=== PATIENT | female | born 1980 | race Caucasian/White ===

== ENCOUNTER 2017-02-28 07:39 | Inpatient (IN) | payer OTHER ==
[~2017-02-28] VITALS: Ht 167.6 cm; Wt 60.0 kg
--- NOTE | ~2017-02-28 | DS ---
Unit #: [id number] #: [id number] Patient: GURWINDER MCCRARY [id number] [address] [address] [id number] I MR#: [id number] NAME: GURWINDER MCCRARY ROOM: 47 Age: 36 Sex: F Admission Date: 02/28/2017 : 1980 Discharge Date: 03/05/2017 Attending Physician: Michael Calhoun M.D. Primary Care Physician: [facility] DISCHARGE SUMMARY DISCHARGE DIAGNOSES 1. Patient left AMA. 2. Septic shock. 3. Severe sepsis. 4. Community-acquired pneumonia, possible Gram-negative rods. 5. Moderate protein malnutrition. 6. Klebsiella urinary tract infection. 7. Obstructive acute pyelonephritis. 8. Anemia. 9. Multifocal pneumonia. 10. Ureteral stone, status post stent. 11. Bibasilar atelectasis. 12. Mild protein malnutrition. CONSULTATION Dr. Calhoun and Dr. Maciel. PROCEDURE Patient had cystoscopy and left retrograde pyelogram and stent placement. LAB DATA Sodium 140, potassium 3.5, creatinine 0.5. Liver enzymes normal. Albumin 2.4. WBC 5.2, hemoglobin 9.0, platelets 117. Urine culture is growing Klebsiella pneumoniae. Blood cultures negative. Stool negative for Giardia and cryptosporidium negative. ALLERGIES None. DISCHARGE MEDICATIONS 1. Tylenol 650 q.6 p.r.n. fever. 2. Cymbalta 60 daily. 3. Bactrim DS, one tablet p.o. b.i.d. for ten days. HOSPITALIZATION COURSE This is a 36-year-old admitted on February 28, 2017, for flank pain. Septic shock with severe sepsis with obstructive acute pyelonephritis with Klebsiella urinary tract infection. Patient is seen by urology and infectious disease. Urine cultures are growing Klebsiella. Blood Unit #: [id number] #: [id number] Patient: GURWINDER MCCRARY cultures negative. Patient was started on broad spectrum antibiotics including IV meropenem and Levaquin. The patient did not stay until we gave him antibiotics. Patient left AMA. Multifocal pneumonia concerning for septic emboli. Patient seen by Dr. Maciel. He was started on broad spectrum antibiotics. He wanted to wait for final cultures but patient left AMA. Anemia, multifactorial. Polysubstance abuse. Patient was supposed to see Dr. Maciel for antibiotic to take home but patient left AMA. Dictated by... Faraz Wilhelm TD: 04/03/2017 07:24 JOB #: [id number] DISCHARGE SUMMARY Page 1 of 1 X Sole Hays MD X DISCHARGE SUMMARY
--- NOTE | ~2017-02-28 | CR72 ---
[facility] A Service of [facility] RADIOLOGY TEXT RESULTS PATIENT: GURWINDER MCCRARY LOCATION: [facility] 476 : 79 UNIT #: [id number] AGE: [address]: Michael Calhoun MD SEX: F ORDER DR: [id number] [facility] [address] [facility]. [place], [place] [address] [id number] I MR#: [id number] Acc #: [id number] NAME: GURWINDER MCCRARY : 1980 SEX: F STUDY DATE/TIME: 03/02/2017 18:30 UNIT: [facility] ROOM: [facility] STUDY DESCRIPTION: CR Chest Single View Portable Attending Physician: Michael Calhoun M.D. Ordering Physician: Dina Doe M.D. Primary Care Physician: [facility] MEDICAL IMAGING REPORT This report is preliminary unless electronic signature is present EXAM Chest portable, 03/02/2017 at 1830 hours CLINICAL HISTORY 36-year-old woman with shortness of air today. COMPARISON None. FINDINGS Portable upright chest demonstrates normal heart size. The aortic contours are normal. There is abnormal soft tissue prominence in the right paratracheal/azygos region measuring up to 3.1 cm transversely. While this could represent prominent vessels. It is concerning for adenopathy or mass. There is bilateral lower lobe airspace density and right greater than left pleural effusion. IMPRESSION 1. Abnormal portable chest film. There is right paratracheal/azygos region soft tissue density measuring up to 3.1 cm transverse. While this could represent prominent vessels. The presence of a mass or adenopathy cannot be excluded. 2. There is bibasilar airspace change with right greater than left pleural effusions. Findings suggest the presence of pulmonary edema. Suggest at least a followup two-view chest film to reassess. A chest CT may be warranted. Dictated by... [facility] A Service [facility] RADIOLOGY TEXT RESULTS PATIENT: GURWINDER MCCRARY LOCATION: [facility] 476 : 79 UNIT #: [id number] AGE: [address]: Michael Calhoun MD SEX: F ORDER DR: Maricarmen Rome M.D. THIS IS AN ELECTRONICALLY VERIFIED REPORT Maricarmen Rome M.D. at 03/03/2017 8:41 AM STEVE/nichelle TD: 03/03/2017 05:58 JOB #: [id number] MEDICAL IMAGING REPORT Page 1 of 1 COPY
--- NOTE | ~2017-02-28 | HP ---
Unit #: [id number] #: [id number] Patient: GURWINDER MCCRARY [id number] [id number] [facility]. [place], [place] [address] [id number] I MR#: [id number] NAME: GURWINDER MCCRARY ROOM: 476 Age: 36 Sex: F Admission Date: 02/28/2017 : 1980 Attending Physician: Michael Calhoun M.D. Primary Care Physician: [facility] HISTORY AND PHYSICAL CHIEF COMPLAINT Flank pain. HISTORY OF PRESENT ILLNESS The patient is a 36-year-old female, with no significant past medical history, presented to the [facility] with complaining of the left-sided flank pain. The patient was found to have 7 x 8 mm stone at the ureteropelvic junction with severe hydronephrosis. The patient was brought to the [facility] for the cystoscopy with stent insertion. The patient had a fever of 102 at home. The patient was started on empiric IV antibiotics with levofloxacin. However, the patient continues to spike with a fever of 101 in the recovery room after the procedure and a medicine consult has been placed for the sepsis protocol and continues to have fever. The patient is status post stent placement and continues to have pain and positive for nausea and vomiting. PAST MEDICAL HISTORY None. PAST SURGICAL HISTORY Breast augmentation. MEDICATIONS Cymbalta. ALLERGIES No known drug allergies. SOCIAL HISTORY Smokes less than pack per day and denies any alcohol and illicit drug abuse. FAMILY HISTORY Reviewed and none. REVIEW OF SYSTEMS Positive for fever. Positive for flank pain. Positive for nausea. No vomiting. Positive for UTI, some infection with the stent placement in the past. Other systems reviewed and are none. PHYSICAL EXAMINATION VITAL SIGNS: On examination, the patient is lying on bed. Unit #: [id number] #: [id number] Patient: GURWINDER MCCRARY VITAL SIGNS: Temperature is 100.7, pulse 124, respirations are 20, blood pressure 121/68, saturating 100% on room air. HEENT: Head is atraumatic, normocephalic. Pupils are equal, round and reactive to light and accommodation. Extraocular movements are intact. NECK: Supple. Decreased air entry at the bases. HEART: Regular rate and rhythm. ABDOMEN: Soft, positive bowel sounds. Positive for the flank pain at the left, severe tenderness. EXTREMITIES: No cyanosis, no clubbing. NEUROLOGIC: Alert, awake and oriented. No gross focal motor deficits. DIAGNOSTIC STUDIES LABORATORY RESULTS: The patient had a UA from yesterday that shows 1+ leukocyte esterase, positive nitrites, 2+ bacteria and 25 to 50 urine wbc's. Urine drug screen is positive for TCS. WBC 10.5, hemoglobin is 13.3, hematocrit 39.2, platelet 152. Beta hCG is negative. Sodium 137, potassium 4.0, chloride 101, bicarb 27, glucose 122, BUN 22, creatinine 0.9. AST 23, ALT 14. WBC from today is 14.6, hemoglobin 12.8, hematocrit 37.9, platelets 122. Lactic acid is 1.1 and UA shows 2+ leukocyte esterase, positive nitrites, 3+ blood, 200 to 300 urine rbc's, 100 to 200 urine wbc's, 4+ urine bacteria. IMAGING STUDIES: CT of the abdomen and pelvis without contrast shows there is a 7 x 8 mm stone at the left ureteropelvic junction, resulting in high grade obstruction of the severe pelvocaliectasis, stranding and fluid around the left kidney and around the renal pelvis. The right kidney and ureter are normal. Hypodensities remain within the appendix, which does not appear thickened or inflamed. ASSESSMENT 1. Sepsis. 2. Urinary tract infection with pyelonephritis. 3. Hydronephrosis. 4. Ureteropelvic stone, status post stent. PLAN To continue with sepsis protocol. Repeat lactic acid again with persistent fever and we will change the antibiotics, discontinue the levofloxacin and start with IV Merrem for broader coverage and we will de-escalate the antibiotics once the sensitivities are back and check the CBC and BMP at a.m. and repeat the lactic acid again now and we will initiate the sepsis protocol with persistent fever and further recommendations will follow. Dictated by Faraz Saleh/syd TD: 03/01/2017 01:53 JOB #: [id number] Unit #: [id number] #: [id number] Patient: GURWINDER MCCRARY HISTORY AND PHYSICAL Page 1 of 1 X ZOILA REEVES MD HISTORY AND PHYSICAL
--- NOTE | ~2017-02-28 | CR7 ---
[facility] Service of [facility] & [facility] RADIOLOGY TEXT RESULTS PATIENT: GURWINDER MCCRARY LOCATION: [place] [address]- : [birth year] UNIT #: [id number] AGE: [address]: Michael Calhoun MD SEX: F ORDER DR: [id number] [facility] [address] [facility]. [place], [place] [address] [id number] I MR#: [id number] Acc #: [id number] NAME: GURWINDER MCCRARY : 1980 SEX: F STUDY DATE/TIME: 03/03/2017 15:45 UNIT: [facility] ROOM: [facility] STUDY DESCRIPTION: CR Abdomen Single AP View Attending Physician: Michael Calhoun M.D. Ordering Physician: Michael Calhoun M.D. Primary Care Physician: [facility] MEDICAL IMAGING REPORT This report is preliminary unless electronic signature is present EXAM Supine radiograph of the abdomen, 03/03/2017 HISTORY Stent placement. COMPARISON Comparison 03/02/2017 FINDINGS There is excreted contrast material in the bilateral renal collecting systems and urinary bladder. There is a stable appearing left ureteral stent extending from the level of the left renal pelvis to the urinary bladder. No calculus suggested along the course of the ureteral stent. There is a stable appearing small subcentimeter left lower pole renal calculus. The bony structures are unremarkable. The bowel gas pattern is normal. There is no free air. Dictated by... Jesus Renteria M.D. THIS IS AN ELECTRONICALLY VERIFIED REPORT Jesus Renteria M.D. at 03/06/2017 1:22 PM Jada TD: 03/04/2017 08:02 JOB #: [id number] MEDICAL IMAGING REPORT Page 1 of 1 COPY
--- NOTE | ~2017-02-28 | CR63 ---
[facility] A Service of [facility] RADIOLOGY TEXT RESULTS PATIENT: GURWINDER MCCRARY LOCATION: [place] [address] : [birth year] UNIT #: [id number] AGE: [address]: Michael Calhoun MD SEX: F ORDER DR: [id number] [facility] [address] [facility]. [place], [place] [address] [id number] I MR#: [id number] Acc #: [id number] NAME: GURWINDER MCCRARY : 1980 SEX: F STUDY DATE/TIME: 03/05/2017 16:30 UNIT: [facility] ROOM: [facility] STUDY DESCRIPTION: CR Chest 2 View Attending Physician: Michael Calhoun M.D. Ordering Physician: Glynn Maciel M.D. Primary Care Physician: [facility]. MEDICAL IMAGING REPORT This report is preliminary unless electronic signature is present EXAM Two views chest, 03/05/2017. HISTORY Pneumonia. Four days duration, shortness of air. REPORT PA and lateral radiographs of the chest are presented. COMPARISON Comparison to CT examination 03/03/2017. FINDINGS No acute bony abnormality. Prior bilateral augmentation mammoplasty. Heart and mediastinum within normal limits of size and contour. The lungs well inflated. Extensive bilateral airspace disease in the bilateral lower lung zones with areas of tabitha consolidation. Small bilateral pleural effusions. I believe there has been some improvement in the patchier mid to upper lung zone airspace disease bilaterally. The basilar findings are probably stable to minimally improved. The appearance could reflect bilateral pneumonia. Improving bilateral pulmonary edema is a consideration as well. There is no suspicious nodule or pneumothorax. Dictated by... Jesus Renteria M.D. THIS IS AN ELECTRONICALLY VERIFIED REPORT Jesus Renteria M.D. at 03/06/2017 1:21 PM PRITI/micheal [facility] A Service of [facility] RADIOLOGY TEXT RESULTS PATIENT: GURWINDER MCCRARY LOCATION: [place] [address] : [birth year] UNIT #: [id number] AGE: [address]: Michael Calhoun MD SEX: F ORDER DR: TD: 03/05/2017 18:33 JOB #: [id number] MEDICAL IMAGING REPORT Page 1 of 1 COPY
--- NOTE | ~2017-02-28 | OR ---
Unit #: [id number] #: [id number] Patient: GURWINDER MCCRARY [id number] [address] [address] [id number] Lois MR#: [id number] NAME: GURWINDER MCCRARY ROOM: 476 Date of Procedure: 02/28/2017 Admission Date: 02/28/2017 Surgeon: Michael Calhoun M.D. : 1980 Attending Physician: Michael Calhoun M.D. Primary Care Physician: [facility] OPERATIVE REPORT PREOPERATIVE DIAGNOSES Left ureteropelvic junction stone, suspect . POSTOPERATIVE DIAGNOSES Left ureteropelvic junction stone, suspect . PROCEDURES PERFORMED Cystoscopy, left retrograde pyelogram, stent placement. DESCRIPTION OF PROCEDURE After informed consent, she was taken to the operating room, placed under general anesthetic, positioned in lithotomy. Her vagina and perineum were prepped and draped in usual sterile fashion. Cystoscopy was performed showing a normal bladder. There were no tumors, no stones. The entire bladder was inspected. Left ureteral orifice was visible. Retrograde pyelogram was performed. There was no obvious calcification upon initial inspection with retrograde pyelogram. There was a filling defect in the proximal ureter consistent with her known stone. A 5 x 26 stent was placed over a wire and the tether was removed. There was a good coil in the bladder and collecting system. There was efflux of urine coming through the portals. There was no tabitha pus. Specimen was obtained for culture and will be sent to the lab. She will be return to the floor. I will consult the hospitalist. Her heart rate in recovery was somewhat tachycardic in the high 110s. Blood pressure was 116/70, hopefully she will improve. Continue antibiotics and I will increase her IV fluids. Dictated by... Faraz Guzman/kaurl TD: 02/28/2017 18:54 JOB #: [id number] Unit #: [id number] #: [id number] Patient: GURWINDER MCCRARY OPERATIVE REPORT Page 1 of 1 X Michael Calhoun MD OPERATIVE NOTE
--- NOTE | ~2017-02-28 | CR6 ---
[facility] A Service of [facility] & [facility] RADIOLOGY TEXT RESULTS PATIENT: GURWINDER MCCRARY LOCATION: [facility] 476-01 : [birth year] UNIT #: [id number] AGE: [address]: Michael Calhoun MD SEX: F ORDER DR: [id number] [facility] [address] [facility]. [place], [place] [address] [id number] I MR#: [id number] Acc #: [id number] NAME: GURWINDER MCCRARY : 1980 SEX: F STUDY DATE/TIME: 03/02/2017 16:39 UNIT: [facility] ROOM: [facility] STUDY DESCRIPTION: CR Abdomen Portable Sng View Attending Physician: Michael Calhoun M.D. Ordering Physician: Michael Calhoun M.D. Primary Care Physician: [facility] IMAGING REPORT This report is preliminary unless electronic signature is present EXAM Frontal abdomen, 03/02/2017 INDICATION Assessment of stone location. CT 02/28/2017 demonstrated a stone at the left UPJ level. Status post stent placement. TECHNIQUE Frontal abdomen compared with 02/28/2017 FINDINGS There is a left-sided ureteral stent present. The proximal loop is at the level of the renal pelvis and the distal loop at the level of the bladder. There is a radiopaque stone measuring 6-7 mm at the expected level of the proximal renal pelvis on the left. This may represent the previously identified stone on CT secondary to proximal migration of the stone. No radiopaque stone associated with the course of the left-sided stent. Bowel gas pattern nonspecific but nonobstructive. Probable atelectasis in the lung bases. IMPRESSION New left-sided ureteral stent. There is a 6-7 mm stone at the level of the left renal pelvis which may represent interval proximal migration of the previously demonstrated stone on CT. Dictated by... Jose Seals M.D. THIS IS AN ELECTRONICALLY VERIFIED REPORT Jose Seals M.D. at 03/03/2017 11:43 AM MARIA ESTHER/nichelle [facility] A Service of [facility] & [facility] RADIOLOGY TEXT RESULTS PATIENT: GURWINDER MCCRARY LOCATION: [facility] 476-01 : [birth year] UNIT #: [id number] AGE: [address]: Michael Calhoun MD SEX: F ORDER DR: TD: 03/03/2017 02:58 JOB #: [id number] MEDICAL IMAGING REPORT Page 1 of 1 COPY
--- NOTE | ~2017-02-28 | CT55 ---
[facility] A Service of [facility] & [facility] RADIOLOGY TEXT RESULTS PATIENT: GURWINDER MCCRARY LOCATION: [facility] 476-01 : [birth year] UNIT #: [id number] AGE: [address]: Michael Calhoun MD SEX: F ORDER DR: [id number] [facility] [address] [place], [place] [address] [id number] I MR#: [id number] Acc #: [id number] NAME: GURWINDER MCCRARY : 1980 SEX: F STUDY DATE/TIME: 03/03/2017 11:40 UNIT: [facility] ROOM: [facility] STUDY DESCRIPTION: CT Chest W Con Attending Physician: Michael Calhoun M.D. Ordering Physician: Anu Gutierrez A.P.R.N. [facility] MEDICAL IMAGING REPORT This report is preliminary unless electronic signature is present EXAM CT chest with contrast, 03/03/2017 1140 hours HISTORY 36-year-old woman with sepsis, pyelonephritis urolithiasis, thrombocytopenia, right paratracheal soft tissue density seen on chest x-ray 03/02/2017. Evaluate for lymphadenopathy. COMPARISON Chest CT 07/19/2013 and chest x-ray 03/02/2017. TECHNIQUE Dynamic helical CT images were obtained from the thoracic inlet through the adrenal glands. Sagittal and coronal reconstructions were performed. Contrast was Isovue-370, 70 mL IV. Total exam DLP 539 mGy-cm. This CT exam was performed with one or more of the following radiation dose reduction techniques: Automatic exposure control, adjustment of mA and/or kV according to patient size, and iterative reconstruction. FINDINGS Images through the thoracic inlet demonstrate no thyroid lesion or adenopathy. Images through the chest demonstrate well opacified normal caliber aorta, without dissection. Cardiac chambers are normal. Pulmonary arteries appear normal. There are very small prevascular, subcarinal and AP window nodes. There is no bulky right paratracheal node. The SVC is mildly prominent and this may account for the finding on prior chest film, given the rotation of the patient on that study. There are moderate bilateral pleural effusions, slightly larger on the right than left. There is ground-glass density in the inferior aspect of STS. [facility] A Service of [facility] RADIOLOGY TEXT RESULTS PATIENT: GURWINDER MCCRARY LOCATION: [facility] 476-01 : [birth year] UNIT #: [id number] AGE: [address]: Michael Calhoun MD SEX: F ORDER DR: the right upper lobe, with airspace changes right middle lobe, right lower lobe and left lower lobe. Findings appear to represent pneumonia. A component of atelectasis may be present. Limited views through the upper abdomen are negative. IMPRESSION 1. The SVC is mildly prominent and well opacified with contrast. There is no right paratracheal mass or adenopathy. This prominent SVC likely accounts for the finding on recent chest film, given the degree of rotation on that film. 2. Bilateral airspace changes in the mid and lower lungs, with bilateral pleural effusions. Findings favor multifocal pneumonia with parapneumonic effusions. Edema could appear similarly. 3. No acute findings in the upper abdomen. Dictated by... Maricarmen Rome M.D. THIS IS AN ELECTRONICALLY VERIFIED REPORT Maricarmen Rome M.D. at 03/04/2017 9:25 AM Esther TD: 03/03/2017 22:11 JOB #: [id number] MEDICAL IMAGING REPORT Page 1 of 1 COPY
--- NOTE | ~2017-02-28 | US80 ---
[facility] A Service of [facility] & [facility] RADIOLOGY TEXT RESULTS PATIENT: GURWINDER MCCRARY LOCATION: [facility] 476-01 : [birth year] UNIT #: [id number] AGE: [address]: Michael Calhoun MD SEX: F ORDER DR: [id number] [facility] [address] [facility]. [place], [place] [address] [id number] I MR#: [id number] Acc #: [id number] NAME: GURWINDER MCCRARY : 1980 SEX: F STUDY DATE/TIME: 03/03/2017 7:44 UNIT: [facility] ROOM: [facility] STUDY DESCRIPTION: US Kidney Unilateral Complete Attending Physician: Michael Calhoun M.D. Ordering Physician: Francisco Cedeno M.D. Primary Care Physician: [facility], MEDICAL IMAGING REPORT This report is preliminary unless electronic signature is present EXAM Renal ultrasound. INDICATION Renal stone diagnosed within the left proximal ureter on February 28, 2017. Patient has subsequently underwent placement of a renal stent yesterday. Exam is requested to evaluate patient's hydronephrosis and for a possibility of abscess. TECHNIQUE Turner-scale and color Doppler sonographic images were obtained through the patient's left kidney and bladder. FINDINGS No definite hydronephrosis is identified. The patient's left ureteral stent is not seen on these images. Bladder is decompressed. The patient is noted to have some fluid within the left lower quadrant. She had some fluid adjacent to the left kidney on prior CT from February 28. IMPRESSION 1. I do not see any evidence of hydronephrosis. Patient reportedly had placement of a left double-J ureteral stent but this is not well seen on images. 2. The bladder cannot be evaluated as it is decompressed. 3. There is some fluid seen within the left lower quadrant. I wonder if this potentially could correspond to the perinephric fluid that was seen on prior CT from February 28. CT would certainly be much more sensitive for evaluation for the presence of an abscess. STAT * RESULT [facility] A Service of [facility] & [facility] RADIOLOGY TEXT RESULTS PATIENT: GURWINDER MCCRARY LOCATION: [facility] 476-01 : [birth year] UNIT #: [id number] AGE: [address]: Michael Calhoun MD SEX: F ORDER DR: Dictated by... Samina iMn M.D. THIS IS AN ELECTRONICALLY VERIFIED REPORT Samina Min M.D. at 03/03/2017 5:03 PM AFF/tmw TD: 03/03/2017 14:48 JOB #: [id number] MEDICAL IMAGING REPORT Page 1 of 1 COPY
--- NOTE | ~2017-02-28 | HP ---
Unit #: [id number] #: [id number] Patient: GURWINDER MCCRARY [id number] [address] [address] [id number] Lois MR#: [id number] NAME: GURWINDER MCCRARY ROOM: 47 Age: 36 Sex: F Admission Date: 02/28/2017 : 1980 Attending Physician: Michael Calhoun M.D. Primary Care Physician: [facility]. HISTORY AND PHYSICAL CHIEF COMPLAINT Left flank pain. HISTORY OF PRESENT ILLNESS A 36-year-old woman with left flank pain evaluated at an outside facility. CT scan showed left UPJ stone. Stone approximately 7 to 8 mm. She was transferred here. Her urinalysis looks suspicious for a UTI. It was positive for nitrites and leukocytes. I saw her in the prep/holding area. She was having left flank pain. She has had stones in the past. She states she had cystoscopy and stent placement in the past. PAST MEDICAL HISTORY Kidney stones, cystoscopy and stent placement. She has had breast augmentation. Anxiety and depression. 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 ALLERGIES No known drug allergies. SOCIAL HISTORY Positive for smoking. FAMILY HISTORY Negative for any urologic problems. REVIEW OF SYSTEMS Negative for 10 points except for left flank pain. PHYSICAL EXAMINATION VITAL SIGNS: At the time she was seen in transfer upon arrival pulse was 117, temperature 98.3, blood pressure 108/75, O2 saturation 99. Prior to going back in the holding area her temperature was 101. CARDIAC EXAM: Benign. PULMONARY EXAM: Benign. EYES: Equal and reactive to light. NECK: Trachea midline. ABDOMEN: Soft, without rebound, and left mild CVA tenderness. EXTREMITIES: No cyanosis, clubbing or edema. NEUROLOGIC: Cranial nerves II through XII intact. DIAGNOSTIC STUDIES Unit #: [id number] #: [id number] Patient: GURWINDER MCCRARY LABORATORY: White count 18.5. Urinalysis 2+ bacteria, 25 to 50 white blood cells, positive for nitrite, positive for leukocyte esterase. ASSESSMENT 1. Left ureteropelvic junction stone. 2. Suspect urinary tract infection. PLAN Discussed with her the fact she has a stone and suspect a UTI. Recommended cystoscopy and stent placement with eventual treatment of her stone after she is treated for UTI. She agreed. I explained to her she may still be at risk for sepsis despite stent placement. She is on antibiotics. Will keep her on antibiotics. She will be stented and then returned to the floor. All her questions were answered. Dictated by Faraz Guzman/jennifer TD: 02/28/2017 22:57 JOB #: [id number] HISTORY AND PHYSICAL Page 1 of 1 X Michael Calhoun MD X HISTORY AND PHYSICAL
--- NOTE | ~2017-02-28 | CO ---
Unit #: [id number] #: [id number] Patient: GURWINDER MCCRARY [id number] [facility] [address] [facility]. [place], [place] [address] [id number] I MR#: [id number] NAME: GURWINDER MCCRARY ROOM: 476 Age: 36 Sex: F Admission Date: 02/28/2017 : 1980 Attending Physician: Michael Calhoun M.D. Primary Care Physician: [facility] CONSULTATION REPORT HISTORY OF PRESENT ILLNESS Ms. Mccrary is a 36-year-old female who presented to [facility] with left-sided flank pain. CT scan of the abdomen revealed a 7 x 8 mm stone at the uteropelvic junction with severe hydronephrosis. She was brought to [facility] and underwent a cystoscopy with stent insertion. She had a fever of 102 at home. She had been started on empiric IV antibiotics in the form of Levaquin. However, cultures have grown Klebsiella sensitive to Rocephin. She is currently on Rocephin. On 03/03/2017 temperature was 100.2. Her O2 saturations were low and supplemental oxygen was added. She had arterial blood gases done on room air, which revealed a pH of 7.48, pCO2 36, pO2 55. We were asked to see the patient. A chest x-ray revealed possibly a soft tissue density in the right paratracheal azygous region measuring 3 mm. There was bibasilar airspace disease, right greater than left, with evidence of pleural effusion. Subsequently a chest CT scan was done, which revealed a SVC which was prominent, probably representing abnormality in the paratracheal area. There was bilateral airspace disease in the mid to lower lungs with bilateral pleural effusions, consistent with either multifocal pneumonia or congestive heart failure. She did have air bronchograms. I have viewed this and reviewed it with the radiologist. The contrast injection was adequate to demonstrate no evidence of pulmonary emboli proximally. She has continued to have high fevers to 103 at 8 o'clock in the morning. She has been started on vancomycin and Zosyn and had been on Rocephin for her Klebsiella urinary tract infection. PAST MEDICAL HISTORY She denies any significant medical problems. PAST SURGICAL HISTORY Breast augmentation. SOCIAL HISTORY Smokes less than a pack per day. Denies alcohol or illicit drugs. Has children. FAMILY HISTORY Negative for lung disease. ALLERGIES No known drug allergies. CURRENT MEDICATIONS Cymbalta. Unit #: [id number] #: [id number] Patient: GURWINDER MCCRARY REVIEW OF SYSTEMS No chest pain. No palpitations. No rhinorrhea, nasal congestion. Does admit to some shortness of breath. Minimal cough. No sputum. Has had some nausea, vomiting. No unilateral weakness or numbness. Skin no rash. PHYSICAL EXAMINATION GENERAL: White female in no distress, sitting up in bed, able to speak in complete sentences, not using any accessory muscles with respiration. VITALS: Blood pressure 117/70, pulse 72, respiratory rate 18, temperature 101.3. NECK: Supple. Trachea midline. No cervical or supraclavicular lymphadenopathy. LUNGS: Fairly clear. HEART: Regular rate and rhythm. Could not appreciate murmur, rub r gallop. ABDOMEN: Nontender. Bowel sounds present. No hepatosplenomegaly. EXTREMITIES: Without clubbing, cyanosis or edema. NEUROLOGIC: Awake, alert and oriented times three. Cranial nerves intact. Muscle strength symmetric. SKIN: Warm and dry. PSYCHIATRIC: Affect calm. DIAGNOSTIC STUDIES LABORATORY: Arterial blood gases as noted. Chemistries reviewed. BNP 387. Lactic acid is 0.7. Procalcitonin 2.06. Beta HCG is negative. White blood cell count 6,100, hematocrit 25.9, platelet count 96,000. ASSESSMENT 1. Bibasilar pneumonia with hypoxemic respiratory failure. Possible healthcare acquired pneumonia. 2. Sepsis syndrome. 3. Uteropelvic junction stone with urinary tract infection with Klebsiella. RECOMMENDATION Broad spectrum antibiotics to cover healthcare acquired pneumonia, MRSA and gram negative. Will also check lower extremity venous Doppler study to further confirm no venous thromboembolism. Will follow with you and make further recommendations pending this. Would also recommend DVT prophylaxis with SCDs. Dictated by... Glynn Maciel M.D. Andrew TD: 03/06/2017 08:31 JOB #: [id number] Unit #: [id number] #: [id number] Patient: GURWINDER MCCRARY CONSULTATION REPORT Page 1 of 1 X Glynn Maciel MD CONSULTATION REPORT
--- NOTE | ~2017-02-28 | CT4 ---
[facility] A Service of [facility] & [facility] RADIOLOGY TEXT RESULTS PATIENT: GURWINDER MCCRARY LOCATION: [facility] 476-01 : [birth year] UNIT #: [id number] AGE: [address]: Michael Calhoun MD SEX: F ORDER DR: [id number] [facility] [address] [facility]. [place], [place] [address] [id number] I MR#: [id number] Acc #: [id number] NAME: GURWINDER MCCRARY : 1980 SEX: F STUDY DATE/TIME: 03/04/2017 8:44 UNIT: [facility] ROOM: [facility] STUDY DESCRIPTION: CT Abd and Pelv Wo Cont Attending Physician: Michael Calhoun M.D. Ordering Physician: Michael Calhoun M.D. Primary Care Physician: [facility] IMAGING REPORT This report is preliminary unless electronic signature is present EXAM CT of the abdomen and pelvis without contrast. INDICATIONS Left flank pain since February 26. TECHNIQUE CT scan of the abdomen and pelvis was performed without contrast using the renal stone protocol. Coronal and sagittal reformatted images were obtained. This CT exam was performed with one or more of the following radiation dose reduction techniques: automatic exposure control, adjustment of mA and/or kV according to patient size, and iterative reconstruction. COMPARISON Comparison is made with 02/28/2017. Also compared with chest CT from yesterday. FINDINGS Evaluation of the lung bases shows stable bilateral lower lobe airspace consolidations and stable bilateral pleural effusions. The liver is unremarkable. There is pericholecystic fluid around the gallbladder. The gallbladder is not distended. The spleen is unremarkable. There has been interval placement of a left double-J ureteral stent. The patient's 6 mm stone, previously seen in the left UPJ region, is now located in a left lower pole phani. The left-sided hydronephrosis has resolved. The right kidney is unremarkable. The adrenal glands are unremarkable. The pancreas is unremarkable. There is mild subcutaneous edema. Pelvis: Small amount of free fluid in the pelvis. The colon is unremarkable. The appendix is normal. The bone windows are unremarkable. STS. [facility] A Service of [facility] & [facility] RADIOLOGY TEXT RESULTS PATIENT: GURWINDER MCCRARY LOCATION: [facility] 476-01 : [birth year] UNIT #: [id number] AGE: [address]: Michael Calhoun MD SEX: F ORDER DR: IMPRESSION 1. There has been interval placement of a left double-J ureteral stent. 2. The 6 mm stone previously located in the left UPJ is now located in a lower pole phani on the left. 3. Resolution of left-sided hydronephrosis. 4. New pericholecystic fluid. Gallbladder nondistended. The pericholecystic fluid is nonspecific. If the patient is experiencing right upper quadrant discomfort, correlation with ultrasound may be helpful. 5. Stable bilateral pleural effusions and bilateral lower lobe consolidations when compared with the chest CT from yesterday. Dictated by... Elbert Swain M.D. THIS IS AN ELECTRONICALLY VERIFIED REPORT Elbert Swain M.D. at 03/04/2017 4:37 PM TRUDY/aubrey TD: 03/04/2017 13:04 JOB #: [id number] MEDICAL IMAGING REPORT Page 1 of 1 COPY
--- NOTE | ~2017-02-28 | CT4 ---
[facility] A Service of [facility] & [facility] RADIOLOGY TEXT RESULTS PATIENT: GURWINDER MCCRARY LOCATION: [facility] 476-01 : [birth year] UNIT #: [id number] AGE: [address]: Michael Calhoun MD SEX: F ORDER DR: [id number] [address] [address] [id number] E MR#: [id number] Acc #: [id number] NAME: GURWINDER MCCRARY : 1980 SEX: F STUDY DATE/TIME: 02/28/2017 09:16 UNIT: SED ROOM: STUDY DESCRIPTION: CT Abd and Pelv Wo Cont Attending Physician: Alex Cespedes M.D. Ordering Physician: Alex Cespedes M.D. [facility] REPORT This report is preliminary unless electronic signature is present. EXAM CT abdomen and pelvis without contrast 02/28/2017 0916 hours CLINICAL HISTORY 36-year-old woman complaining of left lower back pain, left flank pain, left lower quadrant pain with vomiting and nausea since last night. COMPARISON CT abdomen and pelvis 12/05/2015. TECHNIQUE Helical noncontrasted images were obtained from the lung bases through the pubic symphysis. Sagittal and coronal reconstructions were performed. Total exam DLP 690 mGy-cm. This CT exam was performed with one or more of the following radiation dose reduction techniques: Automatic exposure control, adjustment of mA and/or kV according to patient size, and iterative reconstruction. FINDINGS Images through the lung bases demonstrate very minimal linear subpleural density at both bases likely atelectasis or scar. There is no airspace change or nodule. No effusion. The distal esophagus is normal. Bilateral breast implants are present. Images through the abdomen demonstrate a normal appearance to the liver, spleen, pancreas, gallbladder and bile ducts. The adrenal glands are normal. The right kidney demonstrates no mass, stone or dilatation. The left kidney demonstrates moderate to severe pelvocaliectasis to the level of the ureteropelvic junction where there is a high-grade obstruction related to a large stone measuring 7 x 8 mm. There is stranding in the perinephric fat and around the renal pelvis. Consistent with high-grade STS. [facility] A Service of [facility] & [facility] RADIOLOGY TEXT RESULTS PATIENT: GURWINDER MCCRARY LOCATION: [facility] 476-01 : [birth year] UNIT #: [id number] AGE: [address]: Michael Calhoun MD SEX: F ORDER DR: obstruction. These findings are new. There is a crescent of fluid around the lower pole of the left kidney measuring up to 1.5 cm in thickness. This is most likely fluid related to the obstruction lying in a dependent portion. The stomach contains a small amount of dense material, question medication ingestion. The small bowel is normal. There are hyperdensities remaining within the appendix without evidence of inflammation. There is a large amount of stool throughout the colon. Some of which is dense distally perhaps related to medication ingestion. The uterus and ovaries are normal. IMPRESSION 1. There is a 7 x 8 mm stone at the left ureteral pelvic junction resulting in high-grade obstruction with severe pelvocaliectasis, stranding and fluid around the left kidney and around the renal pelvis. 2. The right kidney and ureter are normal. 3. Hyperdensities remain within the appendix which does not appear thickened or inflamed. 4. Increased amount of stool is noted throughout the colon with some dense material within the stool contents of the rectum likely related to medication ingestion. STAT * RESULT Dictated by... Maricarmen Rome M.D. THIS IS AN ELECTRONICALLY VERIFIED REPORT Maricarmen Rome M.D. at 02/28/2017 2:25 PM STEVE/yola TD: 02/28/2017 10:29 JOB #: [id number] MEDICAL IMAGING REPORT Page 1 of 1
--- NOTE | ~2017-02-28 | US84 ---
[id number] [facility] [address] [facility] [address] [place], [place] [address] [id number] I MR#: [id number] Acc #: [id number] NAME: GURWINDER MCCRARY : 1980 SEX: F STUDY DATE/TIME: 03/04/2017 14:08 UNIT: [facility] ROOM: 476 STUDY DESCRIPTION: US LE Veins Complete Travon Stdy Attending Physician: Michael Calhoun M.D. Ordering Physician: [facility] MEDICAL IMAGING REPORT This report is preliminary unless electronic signature is present EXAM Bilateral lower extremity venous duplex 03/04/2017 HISTORY Bilateral lower extremity pain and warmth for 5 years. Evaluate for deep vein thrombosis. TECHNIQUE Venous ultrasound examination of both lower extremities was performed using grayscale, spectral Doppler and color flow Doppler imaging. FINDINGS The examination is negative. There is no evidence of deep venous thrombus from the groin to the lower calf bilaterally. Visualized greater saphenous veins are also patent. IMPRESSION Negative examination. No evidence of lower extremity deep venous thrombosis. Dictated by... Kilo Mario M.D. THIS IS AN ELECTRONICALLY VERIFIED REPORT Kilo Mario M.D. at 03/05/2017 7:35 AM KRT/fernanda TD: 03/04/2017 16:18 JOB #: [id number] MEDICAL IMAGING REPORT Page 1 of 1 COPY
[~2017-02-28 07:39] MED LIST: ACETAMINOPHEN PO; CIPRO XR 500 M500 MG PO; CYMBALTA PO; IBUPROFEN800 MG PO; LEVAQUIN PO; MULTI VITAMIN1 EACH PO; NORCO1 TAB 10/3 PO; PRENATAL MULTIV1 TA1 PO; ZOFRANODT PO; [UNRECOGNIZED DRUG - OTHER] PO
[2017-02-28 08:04] LABS: URINE APPEARANCE SL CLOUDY; URINE BILIRUBIN NEG (NEG); URINE BLOOD 1+ (NEG); URINE COLOR YELLOW; URINE GLUCOSE NEG (NORM); URINE KETONE NEG (NEG); URINE LEUKOCYTE ESTERASE 1+ (NEG); URINE NITRATE POS (NEG); URINE PH 7.5 (5-8); URINE PROTEIN NEG (NEG); URINE SOURCE CLEAN CATCH; URINE SPECIFIC GRAVITY 1.015 (1.003-1.035); URINE UROBILINOGEN 0.2 MG/DL (NORM)
[2017-02-28 08:05] LABS: MICRO INDICATED? YES
[2017-02-28 08:14] LABS: CULTURE INDICATED? YES; URINE BACTERIA 2+ (NEG); URINE RBC 0-2 /[HPF] (0-2); URINE SQUAMOUS EPITHELIAL CELL OCCAS /[HPF]; URINE WBC 25-50 /[HPF] (0-5)
[2017-02-28 08:16] LABS: AMPHETAMINE NEG (NEG); BARBITURATES NEG (NEG); BENZODIAZEPINES NEG (NEG); COCAINE NEG (NEG); MARIJUANA NEG (NEG); OPIATES NEG (NEG); TRICYCLIC ANTIDEPRESSANTS POS (NEG); U METHADONE NEG (NEG)
[2017-02-28 08:29] LABS: BASOPHIL# 0.1 X10e3 (0-0.3); BASOPHIL% 0.4 % (0-2.5); EOSINOPHIL% 0.1 % (0.0-7.0); HEMATOCRIT 39.2 % (35.0-45.0); HEMOGLOBIN 13.3 gm/dL (12.0-16.0); LYMPHOCYTE# 0.2 X10e3 (1.0-3.5); MEAN CELL VOLUME 94.8 FL (83-96); MEAN CORPUSCULAR HEMOGLOBIN 32.2 PG (28-34); MEAN PLATELET VOLUME 9.2 FL (6.5-11.5); MONOCYTE# 0.4 X10e3 (0-1.0); MONOCYTE% 2.1 % (3.0-12.0); NEUTROPHIL# 17.8 X10e3 (1.5-7.1); NEUTROPHIL% 96.4 % (40-75); PLATELET COUNT 152 X10e3 (140-420); RED BLOOD COUNT 4.13 X10e (3.90-5.30); RED CELL DISTRIBUTION WIDTH 12.4 % (11.0-15.5); WHITE BLOOD COUNT 18.5 X10e3 (4.0-10.5)
[2017-02-28 08:32] LABS: DIFF IND NO
[2017-02-28 08:54] LABS: ALBUMIN SERUM 4.4 g/dL (3.5-5.0); BILIRUBIN,TOTAL 0.6 mg/dL (0.2-2.0); BUN/CREATININE RATIO 24.44; CALCIUM SERUM 9.1 mg/dL (8.4-10.2); CREATININE SERUM 0.9 mg/dL (0.6-1.4); GLOM FILT RATE Estimated 81.7 mL/min (>60); PROTEIN TOTAL SERUM 7.5 g/dL (6.0-8.3)
[2017-02-28 15:16] LABS: HEMATOCRIT 37.9 % (35.0-45.0); HEMOGLOBIN 12.8 gm/dL (12.0-16.0); MEAN CELL VOLUME 94.9 FL (83-96); MEAN CORPUSCULAR HEMOGLOBIN 32.2 PG (28-34); MEAN CORPUSCULAR HGB CONC 33.9 g/dL (30-36); MEAN PLATELET VOLUME 8.6 FL (6.5-11.5); RED BLOOD COUNT 3.99 X10e (3.90-5.30); RED CELL DISTRIBUTION WIDTH 12.4 % (11.0-15.5); WHITE BLOOD COUNT 14.6 X10e3 (4.0-10.5)
[2017-02-28 18:46] LABS: URINE APPEARANCE CLOUDY; URINE BILIRUBIN NEG (NEG); URINE BLOOD 3+ (NEG); URINE COLOR YELLOW; URINE GLUCOSE NEG (NEG); URINE KETONE NEG (NEG); URINE LEUKOCYTE ESTERASE 2+ (NEG); URINE NITRATE POS (NEG); URINE PROTEIN TRACE (NEG); URINE SPECIFIC GRAVITY 1.039 (1.003-1.035); URINE UROBILINOGEN 0.2 MG/DL (NEG)
[2017-02-28 18:49] LABS: URBCS1 AUWI 200-300 /[HPF] (0-2); URINE BACTERIA AUWI 4+ (NEGATIVE); URINE SQUAMOUS EPITHELIAL CELL NONE SEEN /[HPF]; UWBCS1 AUWI 100-200 (0-5)
[2017-02-28 23:07] LABS: BASOPHIL# 0.1 X10e3 (0-0.3); BASOPHIL% 0.5 % (0-2.5); HEMATOCRIT 32.8 % (35.0-45.0); HEMOGLOBIN 11.3 gm/dL (12.0-16.0); LYMPHOCYTE# 0.2 X10e3 (1.0-3.5); LYMPHOCYTE% 1.3 % (17.0-45.0); MEAN CELL VOLUME 94.9 FL (83-96); MEAN CORPUSCULAR HEMOGLOBIN 32.8 PG (28-34); MEAN CORPUSCULAR HGB CONC 34.5 g/dL (30-36); MEAN PLATELET VOLUME 9.6 FL (6.5-11.5); MONOCYTE# 0.5 X10e3 (0-1.0); MONOCYTE% 2.9 % (3.0-12.0); NEUTROPHIL# 16.9 X10e3 (1.5-7.1); NEUTROPHIL% 95.3 % (40-75); PLATELET COUNT 101 X10e3 (140-420); RED BLOOD COUNT 3.46 X10e (3.90-5.30); RED CELL DISTRIBUTION WIDTH 12.3 % (11.0-15.5); WHITE BLOOD COUNT 17.8 X10e3 (4.0-10.5)
[2017-02-28 23:08] LABS: DIFF IND YES
[2017-02-28 23:26] LABS: PLATELET ESTIMATE DECREASED (NORMAL)
[2017-02-28 23:27] LABS: ANISOCYTOSIS SL; STOMATOCYTE PRESENT
[2017-03-01 01:24] LABS: BASOPHIL# 0.2 X10e3 (0-0.3); BASOPHIL% 0.9 % (0-2.5); HEMATOCRIT 33.1 % (35.0-45.0); HEMOGLOBIN 11.1 gm/dL (12.0-16.0); LYMPHOCYTE# 0.3 X10e3 (1.0-3.5); LYMPHOCYTE% 1.9 % (17.0-45.0); MEAN CORPUSCULAR HEMOGLOBIN 31.8 PG (28-34); MEAN CORPUSCULAR HGB CONC 33.4 g/dL (30-36); MEAN PLATELET VOLUME 9.3 FL (6.5-11.5); MONOCYTE# 0.6 X10e3 (0-1.0); MONOCYTE% 3.3 % (3.0-12.0); NEUTROPHIL% 93.9 % (40-75); PLATELET COUNT 109 X10e3 (140-420); RED BLOOD COUNT 3.48 X10e (3.90-5.30); RED CELL DISTRIBUTION WIDTH 12.5 % (11.0-15.5); WHITE BLOOD COUNT 18.1 X10e3 (4.0-10.5)
[2017-03-01 01:31] LABS: DIFF IND NO
[2017-03-01 01:53] LABS: BUN/CREATININE RATIO 27.14; CALCIUM SERUM 8.5 mg/dL (8.4-10.2); CREATININE SERUM 0.7 mg/dL (0.6-1.4); GLOM FILT RATE Estimated 110.7 mL/min (>60); POTASSIUM 4.2 mmol/L (3.5-5.1)
[2017-03-02 03:49] LABS: BASOPHIL% 0.1 % (0-2.5); EOSINOPHIL% 0.1 % (0.0-7.0); HEMATOCRIT 29.9 % (35.0-45.0); HEMOGLOBIN 10.2 gm/dL (12.0-16.0); LYMPHOCYTE# 0.6 X10e3 (1.0-3.5); MEAN CELL VOLUME 95.5 FL (83-96); MEAN CORPUSCULAR HEMOGLOBIN 32.6 PG (28-34); MEAN CORPUSCULAR HGB CONC 34.1 g/dL (30-36); MEAN PLATELET VOLUME 10.1 FL (6.5-11.5); MONOCYTE# 0.3 X10e3 (0-1.0); MONOCYTE% 3.7 % (3.0-12.0); NEUTROPHIL# 8.3 X10e3 (1.5-7.1); NEUTROPHIL% 90.1 % (40-75); RED BLOOD COUNT 3.13 X10e (3.90-5.30); RED CELL DISTRIBUTION WIDTH 12.8 % (11.0-15.5); WHITE BLOOD COUNT 9.2 X10e3 (4.0-10.5)
[2017-03-02 04:06] LABS: DIFF IND YES; PLATELET COUNT 77 X10e3 (140-420)
[2017-03-02 04:10] LABS: ANISOCYTOSIS SL; PLATELET ESTIMATE DECREASED (NORMAL)
[2017-03-03 03:25] LABS: BASOPHIL% 0.1 % (0-2.5); EOSINOPHIL% 0.1 % (0.0-7.0); HEMATOCRIT 26.5 % (35.0-45.0); HEMOGLOBIN 9.3 gm/dL (12.0-16.0); LYMPHOCYTE# 0.5 X10e3 (1.0-3.5); LYMPHOCYTE% 6.9 % (17.0-45.0); MEAN CELL VOLUME 94.6 FL (83-96); MEAN CORPUSCULAR HEMOGLOBIN 33.1 PG (28-34); MEAN PLATELET VOLUME 9.7 FL (6.5-11.5); MONOCYTE# 0.5 X10e3 (0-1.0); MONOCYTE% 5.9 % (3.0-12.0); PLATELET COUNT 81 X10e3 (140-420); RED CELL DISTRIBUTION WIDTH 12.8 % (11.0-15.5)
[2017-03-03 03:26] LABS: DIFF IND NO
[2017-03-03 03:41] LABS: CALCIUM SERUM 7.9 mg/dL (8.4-10.2); CREATININE SERUM 0.4 mg/dL (0.6-1.4); GLOM FILT RATE Estimated 133.1 mL/min (>60); POTASSIUM 3.7 mmol/L (3.5-5.1)
[2017-03-04 03:45] LABS: BASOPHIL% 0.2 % (0-2.5); EOSINOPHIL# 0.1 X10e3 (0-0.7); EOSINOPHIL% 0.9 % (0.0-7.0); HEMATOCRIT 25.9 % (35.0-45.0); LYMPHOCYTE# 0.7 X10e3 (1.0-3.5); LYMPHOCYTE% 11.8 % (17.0-45.0); MEAN CELL VOLUME 93.9 FL (83-96); MEAN CORPUSCULAR HEMOGLOBIN 32.7 PG (28-34); MEAN CORPUSCULAR HGB CONC 34.8 g/dL (30-36); MEAN PLATELET VOLUME 9.9 FL (6.5-11.5); MONOCYTE# 0.5 X10e3 (0-1.0); MONOCYTE% 8.2 % (3.0-12.0); NEUTROPHIL# 4.8 X10e3 (1.5-7.1); NEUTROPHIL% 78.9 % (40-75); PLATELET COUNT 96 X10e3 (140-420); RED BLOOD COUNT 2.76 X10e (3.90-5.30); RED CELL DISTRIBUTION WIDTH 12.6 % (11.0-15.5); WHITE BLOOD COUNT 6.1 X10e3 (4.0-10.5)
[2017-03-04 03:46] LABS: DIFF IND NO
[2017-03-04 04:03] LABS: ALBUMIN SERUM 2.5 g/dL (3.5-5.0); BILIRUBIN,TOTAL 0.8 mg/dL (0.2-2.0); CALCIUM SERUM 7.8 mg/dL (8.4-10.2); CREATININE SERUM 0.3 mg/dL (0.6-1.4); GLOM FILT RATE Estimated 146.3 mL/min (>60); MAGNESIUM 1.8 mg/dL (1.6-3.0); POTASSIUM 3.1 mmol/L (3.5-5.1); PROTEIN TOTAL SERUM 5.4 g/dL (6.0-8.3)
[2017-03-04 11:04] LABS: ARTERIAL BLD GAS O2 SATURATION 88.6 % (90.0-100.0); ARTERIAL BLOOD GAS CARBOXY HB 1.2 %sat (0.0-9.0); ARTERIAL BLOOD GAS PCO2 36.9 mmHg (35.0-45.0); ARTERIAL BLOOD GAS pH 7.488 (7.350-7.450)
[2017-03-04 11:05] LABS: ARTERIAL BLOOD GAS ALLEN TEST NORMAL; ARTERIAL BLOOD GAS ART SITE RIGHT RADIAL; ARTERIAL BLOOD GAS PO2 55.7 mmHg (80.0-100); ARTERIAL DRAW? YES
[2017-03-04 13:46] LABS: CK TOTAL 39 IU/L (26-140)
[2017-03-04 19:05] LABS: CK TOTAL 34 IU/L (26-140)
[2017-03-05 03:55] LABS: HEMATOCRIT 26.4 % (35.0-45.0); MEAN CELL VOLUME 94.9 FL (83-96); MEAN CORPUSCULAR HEMOGLOBIN 32.4 PG (28-34); MEAN CORPUSCULAR HGB CONC 34.2 g/dL (30-36); MEAN PLATELET VOLUME 9.9 FL (6.5-11.5); RED BLOOD COUNT 2.79 X10e (3.90-5.30); RED CELL DISTRIBUTION WIDTH 12.5 % (11.0-15.5); WHITE BLOOD COUNT 5.2 X10e3 (4.0-10.5)
[2017-03-05 04:17] LABS: ALBUMIN SERUM 2.4 g/dL (3.5-5.0); BILIRUBIN,TOTAL 0.5 mg/dL (0.2-2.0); CALCIUM SERUM 8.1 mg/dL (8.4-10.2); CREATININE SERUM 0.5 mg/dL (0.6-1.4); GLOM FILT RATE Estimated 123.7 mL/min (>60); POTASSIUM 3.5 mmol/L (3.5-5.1); PROTEIN TOTAL SERUM 5.3 g/dL (6.0-8.3)
[2017-03-05 10:43] LABS: CK TOTAL 36 IU/L (26-140)
[2017-04-28] MEDS ORDERED: DIFLUCAN100 MG PO (11:51)
[2017-04-28] MEDS ORDERED: OMNICEF300 M1 PO (11:51)
[2017-04-28] MEDS ORDERED: [UNRECOGNIZED DRUG - REMARK] (11:55)
== END 2017-03-05 17:32 | disposition left against medical advice (07) | DRG 871 ==
LOC: SED 07:39 → CEDOF 10:35 → C4C 10:38
PROVIDERS: Emergency Medicine; Internal Medicine; Nurse Practitioner; Urology
PROC: BT1FZZZ Fluoroscopy of Left Kidney, Ureter and Bladder (ICD-10-PCS; 2017-02-28)
PROC: 0T778DZ Dilation of Left Ureter with Intraluminal Device, Via Natural or Artificial Opening Endoscopic (ICD-10-PCS; principal; 2017-02-28 17:00)
PROC: 05HC33Z Insertion of Infusion Device into Left Basilic Vein, Percutaneous Approach (ICD-10-PCS; 2017-03-04)
DX: A41.89 Other specified sepsis (principal); R65.21 Severe sepsis with septic shock; J96.01 Acute respiratory failure with hypoxia; J15.6 Pneumonia due to other Gram-negative bacteria; D69.6 Thrombocytopenia, unspecified; N13.6 Pyonephrosis; E44.0 Moderate protein-calorie malnutrition; Y95 Nosocomial condition; B96.1 Klebsiella pneumoniae [K. pneumoniae] as the cause of diseases classified elsewhere; F17.200 Nicotine dependence, unspecified, uncomplicated; R73.9 Hyperglycemia, unspecified; D64.9 Anemia, unspecified; E87.6 Hypokalemia; Z68.21 Body mass index [BMI] 21.0-21.9, adult; Z87.442 Personal history of urinary calculi
CPT/HCPCS: 36415; 36600; 71010; 71020; 71260; 74000; 74176; 76770; 80048; 80053; 80307; 81003; 82308; 82550; 82803; 83605; 83690; 83735; 83880; 84132; 84484; 84703; 85025; 85027; 86140; 87040; 87086; 87088; 87186; 87328; 87329; 93970; 94010; 94760; 94761; 96365; 96375; 99285; C2617; J0696; J1100; J1170; J1885; J1956; J2185; J2250; J2270; J2405; J2543; J2550; J3010; J3370; Q9967

== ENCOUNTER 2017-04-18 13:38 | Emergency (ER) | payer OTHER ==
--- NOTE | ~2017-04-18 | CR72 ---
[facility] A Service of [facility] & [facility] RADIOLOGY TEXT RESULTS PATIENT: GURWINDER MCCRARY LOCATION: SED : [birth year] UNIT #: [id number] AGE: [address]: Reynold Martinez MD SEX: F ORDER DR: [id number] [address] [address] [id number] E MR#: [id number] Acc #: [id number] NAME: GURWINDER MCCRARY : 1980 SEX: F STUDY DATE/TIME: 04/18/2017 14:14 UNIT: SED ROOM: STUDY DESCRIPTION: CR Chest Single View Portable Attending Physician: Reynold Martinez M.D. Ordering Physician: Reynold Martinez M.D. Primary Care Physician: [place] [facility] MEDICAL IMAGING REPORT This report is preliminary unless electronic signature is present. EXAM Portable chest HISTORY Dyspnea with left shoulder, upper chest pain onset today. TECHNIQUE/COMPARISON Single AP view of the chest was obtained and compared with 03/05/2017 FINDINGS Bilateral basilar infiltrates have cleared since the previous exam. There is minimal infiltrate remaining at the right base and the left base is completely clear. The upper lung sahu are clear and the vascular pattern is normal. The heart and mediastinum are stable. IMPRESSION Complete clearing at the left lung base since the previous exam. Near complete clearing at the right base. No new infiltrates are seen. Dictated by... Harlan Charles M.D. THIS IS AN ELECTRONICALLY VERIFIED REPORT Harlan Charles M.D. at 04/20/2017 10:57 AM RLF/isabel TD: 04/18/2017 21:23 JOB #: [id number] MEDICAL IMAGING REPORT Page 1 of 1
[2017-04-18] MEDS ORDERED: IBUPROFEN (14:04)
[2017-04-18] MEDS ORDERED: VOLTAREN75 MG PO (15:35)
[2017-04-18] MEDS ORDERED: FLEXERIL10 MG PO (15:36)
[2017-04-18 15:51] LABS: URINE SOURCE CLEAN CATCH
[2017-04-18 15:55] LABS: URINE APPEARANCE SL CLOUDY; URINE BILIRUBIN NEG (NEG); URINE BLOOD NEG (NEG); URINE COLOR YELLOW; URINE GLUCOSE NEG (NORM); URINE KETONE NEG (NEG); URINE LEUKOCYTE ESTERASE 1+ (NEG); URINE NITRATE NEG (NEG); URINE PROTEIN NEG (NEG); URINE UROBILINOGEN 0.2 MG/DL (NORM)
[2017-04-18 15:56] LABS: MICRO INDICATED? YES
[2017-04-18 16:03] LABS: AMPHETAMINE NEG (NEG); BARBITURATES NEG (NEG); BENZODIAZEPINES NEG (NEG); COCAINE NEG (NEG); MARIJUANA NEG (NEG); OPIATES NEG (NEG); TRICYCLIC ANTIDEPRESSANTS NEG (NEG); U METHADONE NEG (NEG)
[2017-04-18 16:13] LABS: CULTURE INDICATED? YES; URINE BACTERIA 1+ (NEG); URINE RBC 0-2 /[HPF] (0-2); URINE SQUAMOUS EPITHELIAL CELL OCCAS /[HPF]
[2017-04-28] MEDS ORDERED: DIFLUCAN100 MG PO (11:51)
[2017-04-28] MEDS ORDERED: OMNICEF300 M1 PO (11:51)
[2017-04-28] MEDS ORDERED: [UNRECOGNIZED DRUG - REMARK] (11:55)
== END 2017-04-18 16:46 | disposition home or self-care (01) ==
LOC: SED 13:38
PROVIDERS: Emergency Medicine
DX: S43.491A Other sprain of right shoulder joint, initial encounter (principal); N39.0 Urinary tract infection, site not specified; X58.XXXA Exposure to other specified factors, initial encounter; Z87.442 Personal history of urinary calculi; F17.200 Nicotine dependence, unspecified, uncomplicated; Z98.890 Other specified postprocedural states; Z79.899 Other long term (current) drug therapy
CPT/HCPCS: 71010; 80307; 81003; 87086; 96372; 99283; J1885; J2360